=== PATIENT | male | born 1975 | race African-American/Black ===

== ENCOUNTER 2016-09-10 06:52 | Emergency (ER) | payer SELFPAY ==
[~2016-09-10] VITALS: Ht 172.7 cm; Wt 88.0 kg
[2016-09-10 07:27] VITALS: BP 130/83
== END 2016-09-10 09:12 | disposition home or self-care (01) ==
LOC: ER 06:52
DX: S60.011A Contusion of right thumb without damage to nail, initial encounter (principal); Y08.89XA Assault by other specified means, initial encounter; Y93.89 Activity, other specified; Y99.8 Other external cause status; Y92.89 Other specified places as the place of occurrence of the external cause
CPT/HCPCS: 29125; 73130

== ENCOUNTER 2020-10-02 10:44 | Emergency (ER) | payer MEDICAID ==
[~2020-10-02] VITALS: Ht 172.7 cm; Wt 81.6 kg
[2020-10-02 11:43] VITALS: BP 117/83
[2020-10-02] MEDS ORDERED: IBUPROFEN 800 MG TAB PO ONE (13:30)
== END 2020-10-02 13:29 | disposition home or self-care (01) ==
LOC: ER 10:44
DX: G43.909 Migraine, unspecified, not intractable, without status migrainosus (principal); Z20.822 Contact with and (suspected) exposure to COVID-19
CPT/HCPCS: 36415; 87426

== ENCOUNTER 2021-05-02 08:01 | Emergency (ER) | payer MEDICAID, OTHER ==
[~2021-05-02] VITALS: Ht 172.7 cm; Wt 86.2 kg
[2021-05-02 08:36] VITALS: BP 125/81
[2021-05-02] MEDS ORDERED: HYDR25SU21 RE (09:15)
== END 2021-05-02 09:26 | disposition home or self-care (01) ==
LOC: ER 08:01
DX: K64.4 Residual hemorrhoidal skin tags (principal)